=== PATIENT | male | born 1965 | race Caucasian/White ===

== ENCOUNTER 2021-10-31 15:38 | Emergency (ER) | payer OTHER ==
[~2021-10-31] VITALS: Ht 177.8 cm; Wt 120.2 kg
--- NOTE | ~2021-10-31 | EMS ---
[facility] [address] [place] [address] EMS Patient Care Report Name: JAZIEL RINCON Room #: DEP MANISH Feldman#: [id number] Admission: 10/31/21 Attend Phys: Discharge: 10/31/21 Date of : 67 Report #: [id number] THIS REPORT FOR: //name// Report Transmitted: 11/01/2021 14:21 EMS Care Summary [place], [place]/[facility] Incident [id number] @ 10/31/2021 14:55 Incident Location [address] [place] [address] RD Patient JAZIEL RINCON Male, 55 Years 1965 Patient Address [id number] [place] [address] Patient History Hypertension (HTN),Hyperlipidemia,Amputee,Alcohol Abuse, Patient Allergies Fentanyl,Oxycodone, Patient Medications Aspirin, Unknown, Chief Complaint AMS Disposition Transported No Lights/[place] Reason Unknown Problem/Person Down Transported To [facility] Narrative M36 had a walk in of an unaccompanied minor. Minor stated her father had fallen out of his vehicle. PT found outside of truck in gas station parking lot across [address] from [facility] [address]. PT stated he needed help up as chief complaint. PT stated he "had been drinking." PT assisted to stand and fix prosthesis lower leg. PT alert and oriented x3. PT requested assistance to use restroom. P36 [facility] [address] [place] [address] EMS Patient Care Report Name: JAZIEL RINCON Room #: DEP [facility].#: [id number] Admission: 10/31/21 Attend Phys: Discharge: 10/31/21 Date of : 67 Report #: [id number] staff assisted PT. PT fell in restroom while urinating. PT assisted to stand and walk to stretcher. PT sat on stretcher and was secured with seatbelts. PT family via phone requested PT not be transported. PT family informed PT altered and not able to make decisions. Unaccompanied minor left with P36 and PD. PT vitals monitored during transport. PT report given. PT assisted to stand and pivot to wheelchair by EMS. PT care and belongings transferred to ER staff at [facility] without incident. M36 placed back in service. Initial Vitals @14:58P: 82,R: 16,BP: 158/90,Pain: 0/10,GCS: 14,Glucose: 103,SpO2: 98,Revised Trauma: 12, @15:20P: 75,R: 18,BP: 130/80,Pain: 0/10,GCS: 14,SpO2: 96,Revised Trauma: 12, @15:26P: 74,R: 16,BP: 142/82,Pain: 0/10,GCS: 14,SpO2: 95,Revised Trauma: 12, Assessments @15:30MENTAL:Person Oriented,Confused,Time Oriented,Place Oriented,SKIN:HEENT:Head/Face: Drainage,LUNG SOUNDS:ABDOMEN:PELVIS//GI:Incontinence,EXTREMITIES:Left Arm: Other,Right Arm: Other,Right Leg: Other,PULSE:Radial: 2+ Normal,NEURO:Abnormal Gait,Slurred Speech, Impression Overdose - Alcohol Procedures @15:25 ALS Assessment Response: UnchangedSucceeded Timeline 14:55,Call Received 14:55,Dispatch Notified 14:55,Dispatched 14:55,En Route 14:55,On Scene 14:56,At Patient 14:58,BP: 158/90 M,PULSE: 82,RR: 16 R,SPO2: 98 Ox,ETCO2: ,B,PAIN: 0,GCS: 14, 15:20,BP: 130/80 M,PULSE: 75,RR: 18 R,SPO2: 96 Ox,ETCO2: ,BG: ,PAIN: 0,GCS: 14, 15:25,ALS Assessment,Response: UnchangedSucceeded, 15:26,BP: 142/82 M,PULSE: 74,RR: 16 R,SPO2: 95 Ox,ETCO2: ,BG: ,PAIN: 0,GCS: 14, 15:27,Depart Scene 15:33,At Destination 15:47,Call Closed Disclaimer [facility] [address] [place] [address] EMS Patient Care Report Name: JAZIEL RINCON Room #: DEP [place]#: [id number] Admission: 10/31/21 Attend Phys: Discharge: 10/31/21 Date of : 67 Report #: [id number] v1.1 Copyright 2020 [employer] This EMS Care Summary contains data elements from the applicable legal record (which may be displayed differently). It is designed to provide pertinent information for the following purposes: continuity of care, clinical quality, and state data reporting. The complete legal record is available to ED staff and administrators of the receiving hospital in [email or web address]'s Patient Tracker. All data is provided "as is."
--- NOTE | ~2021-10-31 | EMS ---
[facility] [address] [place] [address] EMS Patient Care Report Name: JAZIEL RINCON Room #: REG MANISH Feldman#: [id number] Admission: 10/31/21 Attend Phys: Discharge: Date of : 67 Report #: [id number] THIS REPORT FOR: //name// Report Transmitted: 10/31/2021 16:15 EMS Care Summary [place], [place]/[facility] Incident [id number] @ 10/31/2021 14:55 Incident Location [address] [place] [address] RD Patient JAZIEL RINCON Male, 55 Years 1965 Patient Address [address] [address] Patient History Hypertension (HTN),Hyperlipidemia,Amputee,Alcohol Abuse, Patient Allergies Fentanyl,Oxycodone, Patient Medications Aspirin, Unknown, Chief Complaint AMS Disposition Transported No Lights/[place] Reason Unknown Problem/Person Down Transported To [facility] Narrative M36 had a walk in of an unaccompanied minor. Minor stated her father had fallen out of his vehicle. PT found outside of truck in gas station parking lot across [place] from [facility] [address]. PT stated he needed help up as chief complaint. PT stated he "had been drinking." PT assisted to stand and fix prosthesis lower leg. PT alert and oriented x3. PT requested assistance to use restroom. P36 [facility] [address] [place] [address] EMS Patient Care Report Name: JAZIEL RINCON Room #: REG [facility].#: [id number] Admission: 10/31/21 Attend Phys: Discharge: Date of : 67 Report #: [id number] staff assisted PT. PT fell in restroom while urinating. PT assisted to stand and walk to stretcher. PT sat on stretcher and was secured with seatbelts. PT family via phone requested PT not be transported. PT family informed PT altered and not able to make decisions. Unaccompanied minor left with P36 and PD. PT vitals monitored during transport. PT report given. PT assisted to stand and pivot to wheelchair by EMS. PT care and belongings transferred to ER staff at [facility] [place] incident. M36 placed back in service. Initial Vitals @14:58P: 82,R: 16,BP: 158/90,Pain: 0/10,GCS: 14,Glucose: 103,SpO2: 98,Revised Trauma: 12, @15:20P: 75,R: 18,BP: 130/80,Pain: 0/10,GCS: 14,SpO2: 96,Revised Trauma: 12, @15:26P: 74,R: 16,BP: 142/82,Pain: 0/10,GCS: 14,SpO2: 95,Revised Trauma: 12, Assessments @15:30MENTAL:Person Oriented,Confused,Time Oriented,Place Oriented,SKIN:HEENT:Head/Face: Drainage,LUNG SOUNDS:ABDOMEN:PELVIS//GI:Incontinence,EXTREMITIES:Left Arm: Other,Right Arm: Other,Right Leg: Other,PULSE:Radial: 2+ Normal,NEURO:Abnormal Gait,Slurred Speech, Impression Overdose - Alcohol Procedures @15:25 ALS Assessment Response: UnchangedSucceeded Timeline 14:55,Call Received 14:55,Dispatch Notified 14:55,Dispatched 14:55,En Route 14:55,On Scene 14:56,At Patient 14:58,BP: 158/90 M,PULSE: 82,RR: 16 R,SPO2: 98 Ox,ETCO2: ,B,PAIN: 0,GCS: 14, 15:20,BP: 130/80 M,PULSE: 75,RR: 18 R,SPO2: 96 Ox,ETCO2: ,BG: ,PAIN: 0,GCS: 14, 15:25,ALS Assessment,Response: UnchangedSucceeded, 15:26,BP: 142/82 M,PULSE: 74,RR: 16 R,SPO2: 95 Ox,ETCO2: ,BG: ,PAIN: 0,GCS: 14, 15:27,Depart Scene 15:33,At Destination 15:47,Call Closed Disclaimer [facility] [address] [place] [address] EMS Patient Care Report Name: MCKENZIEJAZIEL Room #: REG MANISH Feldman#: [id number] Admission: 10/31/21 Attend Phys: Discharge: Date of : 67 Report #: [id number] v1.1 Copyright 2020 [employer] This EMS Care Summary contains data elements from the applicable legal record (which may be displayed differently). It is designed to provide pertinent information for the following purposes: continuity of care, clinical quality, and state data reporting. The complete legal record is available to ED staff and administrators of the receiving hospital in [employer]'s Patient Tracker. All data is provided "as is."
[2021-10-31 17:16] LABS: HEMATOCRIT 33.6 % (42.0-52.0); HEMOGLOBIN 11.4 gm/dL (14.0-18.0); MCH 34.2 pg (26.0-34.0); MCHC 33.9 g/dL (28.0-37.0); RBC 3.32 mil/uL (4.50-6.00); RDW 13.1 % (10.5-14.5); WBC 7.3 thou/uL (4.0-11.0)
[2021-10-31 17:34] LABS: CALCIUM 8.3 mg/dL (8.5-10.1); CREATININE 0.7 mg/dL (0.7-1.3); POTASSIUM 3.6 mmol/L (3.5-5.1)
[2021-10-31 17:49] LABS: ALBUMIN 3.5 g/dL (3.4-5.0); MAGNESIUM 1.5 mg/dL (1.8-2.4); TOTAL BILIRUBIN 0.1 mg/dL (0.2-1.0); TOTAL PROTEIN 6.7 g/dL (6.4-8.2)
[2021-10-31 18:49] VITALS: BP 116/61
== END 2021-10-31 18:47 | disposition home or self-care (01) ==
LOC: ER 15:38
PROVIDERS: Nurse Practitioner Family
DX: F10.129 Alcohol abuse with intoxication, unspecified (principal); E78.5 Hyperlipidemia, unspecified; I10 Essential (primary) hypertension; F10.10 Alcohol abuse, uncomplicated; Z88.8 Allergy status to other drugs, medicaments and biological substances; Z88.6 Allergy status to analgesic agent